=== PATIENT | female | born 2000 | race American Indian/Alaskan Native ===

== ENCOUNTER 2022-02-23 13:41 | Emergency (ER) | payer OTHER ==
[~2022-02-23] VITALS: Ht 167.6 cm; Wt 71.8 kg
--- NOTE | 2022-02-25 20:53 | EKG ---
[facility] [address] [facility] [facility] [place] [address] Signed Normal sinus rhythm Normal ECG No previous ECGs available Confirmed by Ondina Renteria MD () on 02/25/2022 8:53:03 PM Electronically Signed By: ONDINA RENTERIA MD 02/25/222052 PATIENT NAME: ABHIJEET ELI Electrocardiogram DATE OF : [birth year] PHYSICIAN: ONDINA RENTERIA MD REPORT #: [id number] REPORT IS CONFIDENTIAL AND NOT TO BE RELEASED WITHOUT AUTHORIZATION
== END 2022-02-23 17:24 | disposition home or self-care (01) ==
LOC: ED 13:41
DX: R55 Syncope and collapse (principal); S09.90XA Unspecified injury of head, initial encounter; W22.8XXA Striking against or struck by other objects, initial encounter
CPT/HCPCS: 36415; 80048; 81001; 84703; 85025; 93005; 93010; 99284-25

== ENCOUNTER 2025-03-28 22:38 | Observation (INO) | payer OTHER ==
[~2025-03-28] VITALS: Ht 167.6 cm; Wt 107.0 kg
[2025-03-28] MEDS ORDERED: IBUPROFEN200 M1 PO (22:51)
[2025-03-28] MEDS ORDERED: ASPIRIN 81 MG CHEW PO ONE (23:00)
[2025-03-28] MEDS ORDERED: LIDOCAINE & ANTACID 35 ML BTL PO ONE (23:00)
[2025-03-28] MEDS ORDERED: FAMOTIDINE 20 MG/ 2 ML VIAL IV ONE (23:00)
[2025-03-28 23:07] LABS: BASOPHILS 0.5 % (0.1-1.2); EOSINOPHILS 1.7 % (0.7-5.8); LYMPHOCYTES 8.6 % (19.3-51.7); MCH 29.0 PG (25.6-32.2); MCHC 34.1 g/dL (32.2-35.5); MCV 85.1 fL (79.4-94.8); MONOCYTES 5.5 % (4.7-12.5); NEUTROPHILS 83.4 % (34.0-71.1); RBC 4.83 M/uL (3.93-5.22)
[2025-03-28 23:24] LABS: ALT (SGPT) 16.0 U/L (14-59); AST (SGOT) 16.0 U/L (15-37); GLOMERULAR FILTRATION RATE,EST 125.0 mL/min (>60); PROTEIN, TOTAL 7.9 g/dL (6.4-8.2); UREA NITROGEN 5.0 mg/dL (7-18)
[2025-03-29] VITALS (10 sets, daily range): BP systolic 98–126; BP diastolic 53–74
[2025-03-29] MEDS ORDERED: ACETAMINOPHEN 500 MG TAB ONE (00:14)
[2025-03-29] MEDS ORDERED: ACETAMINOPHEN 500 MG TAB PO ONE (00:15)
[2025-03-29 00:40] LABS: CORONAVIRUS COVID-19 AG NEGATIVE (NEGATIVE)
[2025-03-29] MEDS ORDERED: CEFAZOLIN SODIUM 2 GM in SODIUM CHLORIDE 0.9% 100 ML IV ONE (01:00)
[2025-03-29] MEDS ORDERED: KETOROLAC TROMETHAMINE 30 MG/ML VIAL IV ONE (01:00)
[2025-03-29 01:02] LABS: BLOOD/HGB, URINE NEGATIVE (Negative); KETONE, URINE NEGATIVE (Negative); LEUK ESTERASE, URINE NEGATIVE (negative); NITRITE, URINE NEGATIVE (negative)
[2025-03-29] MEDS ORDERED: LACTATED RINGER'S 1,000 ML IV SCH ×3 (06:15→09:15)
[2025-03-29] MEDS ORDERED: KETOROLAC TROMETHAMINE 30 MG/ML VIAL IV PRN ×2 (06:30→09:15)
--- NOTE | 2025-03-29 08:50 | NUR ---
IN ROOM WITH DR BETANCOURT, PT AND FATHER. DISCUSS PLAN OF CARE. GB BOOK EDUCATION TO PT. BEREKETG WIPES TO PT FOR PRE OP.
[2025-03-29] MEDS ORDERED: FAMOTIDINE 20 MG/ 2 ML VIAL IV SCH (09:09)
[2025-03-29] MEDS ORDERED: MORPHINE SULFATE 10 MG/ML VIAL IV PRN (09:15)
[2025-03-29] MEDS ORDERED: LACTATED RINGER'S 1,000 ML IV ONE ×2 (09:15→16:30)
[2025-03-29] MEDS ORDERED: CEFAZOLIN SODIUM 2 GM in SODIUM CHLORIDE 0.9% 100 ML IV SCH (09:30)
--- NOTE | 2025-03-29 09:31 | NUR ---
WHEN PT ARRIVED ON FLOOR NURSE TOBIAS WAS IN THE OOM TO UPDATE WHITEBOARD AND OFFER ORAL CARE. FRED WHEELER BROUIGHT HER A NEW GOWN TO CHANGE INTO AND GAVE HER THE UTILITIES NEEDED FOR ORAL CARE. PT STATED NO FURHTER NEEDS, CALL LIGHT LEFT WITHIN REACH.
[2025-03-29 09:46] LABS: ALT (SGPT) 19.0 U/L (14-59); AST (SGOT) 18.0 U/L (15-37); GLOMERULAR FILTRATION RATE,EST 102.0 mL/min (>60); PROTEIN, TOTAL 7.2 g/dL (6.4-8.2); UREA NITROGEN 7.0 mg/dL (7-18)
--- NOTE | 2025-03-29 10:08 | NUR ---
PT GIVEN IV TORADOL FOR C/O HEADACHE. BLANCA RN IN TO PLACE IV US LINE - PT NEEDS BOLUS AND IV ABX CURRENT LINE IS WNL BUT SORE/SENSATIVE AND PT NEEDS BOLUS - PRE SURGERY. PREVIOIUS IV START IN ER TO LEFT ARM WAS DIFFICULT AND LG BRUISE NOTED - PT REQUESTED SOMEONE WHO WAS VERY GOOD AT IV'S FOR HER HARD START.
--- NOTE | 2025-03-29 10:22 | NUR ---
UR CLINICAL REVIEW: MCG-PER MCG REVIEW MEETS OBS FOR CHOECYSTITIS WITH NEED FOR SURGICAL INTERVENTION AND PAIN CONTROL EOCCO OBS 03/28/25 @ 2250 ORDER MATCHES REG NO AUTH REQUIRED FOR OBS VISIT PER MODA GUIDELINES DISCHARGE TO HOME IF MEETS CRITERIA 03/30/25
[2025-03-29] MEDS ORDERED: SEVOFLURANE 250 ML BTL INH ONE (10:32)
--- NOTE | 2025-03-29 10:34 | NUR ---
FRED WHEELER WALKED INTO ROOM TO TAKE PT VS SIGNS. IMPROVEMENT SPECMaxine WHEELER DOCUMENTED VS AND ASSISTED NURSE JATINDER WITH PUTTING ON LEG SLEEVES FOR THE PATIENT. PATIENT STATED NO FURTHER NEEDS, CALL LIGHT WITHIN REACH.
--- NOTE | 2025-03-29 10:39 | NUR ---
MED REC COMPLETE
--- NOTE | 2025-03-29 11:20 | EKG ---
[facility] [address] [facility] [place], [place] [address] Signed Normal sinus rhythm Cannot rule out Anterior infarct , age undetermined Abnormal ECG When compared with ECG of 23-FEB-2022 15:58, No significant change was found Confirmed by Elgin Leavitt DO ([id number]) on 03/29/2025 11:20:42 AM Electronically Signed By: ELGIN LEAVITT DO 03/29/25 1120 PATIENT NAME: ABHIJEET ELI Electrocardiogram DATE OF : [birth year] PHYSICIAN: ELGIN LEAVITT DO REPORT #: [id number] REPORT IS CONFIDENTIAL AND NOT TO BE RELEASED WITHOUT AUTHORIZATION
--- NOTE | 2025-03-29 11:52 | NUR ---
pt resting in bed reports headache improved after bolus and toradol. iv wnl x 2 sites, call light in reach.
[2025-03-29] MEDS ORDERED: SODIUM CHLORIDE 0.9% 40 ML IV ONE (13:11)
--- NOTE | 2025-03-29 14:19 | NUR ---
Spoke with Mee. Dad in room. Pt states she lives by [place] and lives with friends. She has 4 steps into her home and denies needs getting in our out of her house. She works at [employer] and drives. She does not use any DME. She plans on dc to home when medically cleared to her house. Friends/Roommates will stay with her. She saw Dr. Campbell this morning and is waiting for surgery.
--- NOTE | 2025-03-29 14:50 | NUR ---
pt to surgery with lr on strait tubing - 2 iv sites wnl, scds and in her bed. chg wipe complete. no questions family waiting in her room.
[2025-03-29] MEDS ORDERED: KETOROLAC TROMETHAMINE 30 MG/ML VIAL ONE (15:09)
[2025-03-29] MEDS ORDERED: SUGAMMADEX SODIUM 200 MG/2 ML ML ONE (15:09)
[2025-03-29] MEDS ORDERED: ROCURONIUM BROMIDE 50 MG/5 ML SYR ONE ×2 (15:09→16:29)
[2025-03-29] MEDS ORDERED: LIDOCAINE HCL 2% 5 ML SDV ONE (15:09)
[2025-03-29] MEDS ORDERED: DEXAMETHASONE SOD PHOS 4 MG/ML VIAL ONE (15:09)
[2025-03-29] MEDS ORDERED: fentaNYL citrate 100 MCG/2 ML VIAL ONE (15:11)
[2025-03-29] MEDS ORDERED: MIDAZOLAM HCL 2 MG/2 ML VIAL ONE (15:11)
[2025-03-29] MEDS ORDERED: MORPHINE SULFATE 10 MG/ML VIAL ONE (16:16)
[2025-03-29] MEDS ORDERED: SODIUM CHLORIDE 0.9% 20 ML IV ONE (16:16)
--- NOTE | 2025-03-29 17:04 | NUR ---
03/29/25 1704 Lizzie Herrera 1657: PT ARRIVES TO PACU WITH ORAL AIRWAY IN PLACE. 6L O2 VIA MASK. 4 TROCHAR SITES, SMALL AMOUTN OF SHAOWING. REPROT RECEIVED FROM GEOLOGICAL DRAFTER AND OPENSTACK DEVELOPER.
[2025-03-29] MEDS ORDERED: OXYCODONE/APAP 7.5/325 TAB PO PRN (17:15)
[2025-03-29] MEDS ORDERED: IBUPROFEN 600 MG TAB PO PRN (17:15)
[2025-03-29] MEDS ORDERED: ACETAMINOPHEN 500 MG TAB PO PRN (17:15)
--- NOTE | 2025-03-29 17:35 | NUR ---
RETURNED FROM SURGERY - LAP KIMBERLEY, 3 SCOPE SITES TO ABD WNL WITH STERI STRIPS, BEDSIDE OX 97%3 L NC. CALL LIGHT IN REACH AND FAMILY AT BEDSIDE.
--- NOTE | 2025-03-29 18:33 | NUR ---
PT WAKES AND C/O 8/10 ABB PAIN, EASILY FALLS ASLEEP AND SNORES - FAMILY AT SIDE, AND CONT. PULSE OX WITH 3L NC. 2MG IV MS GIVEN FOR PAIN. CALL LIGHT IN REACH, ABD WNL, SCDS ON.
--- NOTE | 2025-03-29 20:13 | NUR ---
1939 - up to brp, 1pa, voided, on return c/o abd pain, medicated with 2 percocet Back in bed, on room air, post op CPOX on at bedside. abd tender, not passing gas, scds in place, significant other in room.
--- NOTE | 2025-03-29 21:46 | NUR ---
Drowsy, wakens up after several loud verbal cues. On 2LNC, post op CPOX on at bedside, desatted to 88%, no resp distress, lungs clear bilat, abd tender, was medicated earlier, denies passing gas, JUSTA, tender, 2 lap sites and over umbilical area, slight dischrge at this site. SCDs in place, IV infusing RAC. goes back to sleep
--- NOTE | 2025-03-29 23:50 | NUR ---
used call light, on 2LNC, post op CPOX at bedside, up to BRP, voided, back to bed, c/o abd pain, medicated with Toradol IV, IVF infusing w/o problems. scds back on. abd ss intact, slight old drainage at umbilical area. male friend rooming in
[2025-03-30] VITALS (7 sets, daily range): BP systolic 106–131; BP diastolic 52–67
--- NOTE | 2025-03-30 02:01 | NUR ---
ON 2L NC, POST OP CPOX ON AT BEDSIDE, wnl. AWAKENS EASILY, NO S/SX DISTRESS. ABD SOFT, TENDER, VERY DISTANT JUSTA, DENIES PASSING GAS OR C/O ABD PAIN. ABD LAP SITES SS IN PLCE. SCDS IN PLACE, IVF INFUSING W/O PROBLEMS
--- NOTE | 2025-03-30 04:05 | NUR ---
RESTING, EYES CLOSED, NO S/SX DISTRESS, O2 2LNC IN PLACE, POST OP CPOX ON AT BEDSIDE, O2 NOT CHRONIC. NO C/O PAIN, IVF INFUSIGN W/O PROBLEMS. SCDS IN PLACE
--- NOTE | 2025-03-30 05:40 | NUR ---
awakens easily, medicated wtih 2 percocet c/o abd pain, on room air at this time, sats 92%m up to BRP, voided, on her menses, does own jerson and oral care. IVF infusing RA w/o problems, out for walk.
--- NOTE | 2025-03-30 07:10 | NUR ---
REPORT RECEIVED FROM LEODAN WEAVER. PATIENT RESTING IN BED WITH HER EYES CLOSED. EVEN AND UNLABORED RESPIRATIONS NOTED. WHITE BOARD UPDATED. CALL LIGHT AND PERSONAL BELONGINGS ARE WITHIN REACH. PATIENT'S FAMILY AT BEDSIDE.
--- NOTE | 2025-03-30 09:14 | NUR ---
JOE DAVIDSON PATIENT JUST WOKE UP SAID SHE DOSENT HAVE MUCH OF AN APPETITE. ASKED FOR ICE WATER
--- NOTE | 2025-03-30 09:40 | NUR ---
Spoke with Mee. Frank in room. She has mild pain and is taking Ibuprofen. She denies any needs and is resting. She is waiting to see Dr. Campbell and plans on dc today to her home.
--- NOTE | 2025-03-30 11:03 | NUR ---
HOURLY ROUNDING PATIENT APPEARS TO BE TIRED. I TURNED ON A LIGHT IN THE BATHROOM AND RAISED THE BLINDS A BIT. NO REQUEST FROM PATIENT. FILLED CUP TO ENCOURAGE WATER. CALL LIGHT PLACED WITHIN REACH
--- NOTE | 2025-03-30 11:05 | NUR ---
PATIENT RESTING IN BED WITH HER EYES CLOSED. EVEN AND UNLABORED RESPIRATIONS NOTED. CALL LIGHT AND PERSONAL BELONGINGS ARE WITHIN REACH.
[2025-03-30] MEDS ORDERED: IBUPROFEN600 MG PO (11:19)
[2025-03-30] MEDS ORDERED: ACETAMINOPHEN500 MG PO (11:20)
[2025-03-30] MEDS ORDERED: OXYCODON-ACETA1 EAC2 PO (11:20)
--- NOTE | 2025-03-31 14:52 | HP ---
[facility] [address] [place], [place] [address] Signed ADMISSION DATE: 03/28/2025 REASON FOR ADMISSION: Acute calculous cholecystitis. HISTORY OF PRESENT ILLNESS: This 24-year-old woman presented to emergency room late last night. She was evaluated by Dr. Chad Pang emergency room physician with complaints of vague abdominal pain and some question of chest pain. Her original complaints did include substernal chest pain which was intermittent for the past week. She developed abdominal pain over a week ago she tells me. She has had at least one episode of vomiting early in the evening after eating [employer] chicken McNuggets. She denies any family history of coronary disease or pulmonary embolism. A D-dimer was noted to be elevated on that basis she underwent a chest x-ray which was normal and a CT scan of the chest to rule out pulmonary embolism. There was no evidence of pulmonary embolism, but there was mild distention of the gallbladder and common bile duct. An ultrasound was performed which showed a nonmobile gallstone in the gallbladder neck with gallbladder wall thickening. The common bile duct was mildly dilated at 7.2 mm. There was no sign of intrahepatic ductal dilatation. Lab studies had shown normal liver enzymes including alkaline phosphatase of 83 and bilirubin of 0.3. White count was elevated at 12.6. She is admitted for further evaluation and care. Other issues noted include a 12-lead EKG showing sinus rhythm at 67 beats per minute. QRS axis normal. Since admission, she is feeling better, having been given medication including IV antibiotics and parenteral pain medication. Last menstrual period was March 28, 2025. She does not use alcohol or drugs. She has no prior surgical interventions. MEDICATIONS: At home include Motrin as needed. ALLERGIES: She has no known drug allergies. SOCIAL HISTORY: She is accompanied by her father; she works at [employer]. She is a movers. REVIEW OF SYSTEMS: She denies any shortness of breath or chest pain. She has had no dysphagia or dysuria. Denies any hematemesis or blood per rectum. Her pain is centered mostly in the right Electronically Signed By: FELI BETANCOURT MD 03/31/25 1452 PATIENT NAME: ABHIJEET ELI HISTORY AND PHYSICAL DATE OF : 02 REPORT #: [id number] PHYSICIAN: FELI BETANCOURT MD PCP: [facility] REPORT IS CONFIDENTIAL AND NOT TO BE RELEASED WITHOUT AUTHORIZATION [facility] [address] [place], [place] [address] Signed upper quadrant at this point. PHYSICAL EXAMINATION: GENERAL: Pleasant white woman who is reserved and withdrawn somewhat. Her father is in attendance to her. VITAL SIGNS: Show a temperature of 98.4, pulse 88, blood pressure 98/62, oxygen saturation 98% on room air. HEENT: Trachea is midline. Mucous membranes are slightly dry. CHEST: Shows normal respiratory excursion. Pulses regular. ABDOMEN: Obese, but scaphoid. There is tenderness in right upper quadrant without mass. There is no ascites. EXTREMITIES: Show no clubbing, cyanosis, or edema. LABORATORY DATA: Lab studies were as noted with white count of 12.69, hematocrit 41.1, platelets 245,000. Coag studies show a D-dimer of 0.76 (normal less than 0.50). Urinalysis was normal. Influenza screen is negative. Chem 20 shows normal electrolytes. Creatinine is 0.7. Liver enzymes are normal. Beta HCG is negative. Lipase 16. ASSESSMENT: The patient has acute calculous cholecystitis. Review of the ultrasound and various reports was undertaken. Gallbladder shows a thickened wall on my review. Layering debris or stones are noted as well. I discussed with the patient and her father the pathophysiology of biliary disease using the white board in the room. Would recommend cholecystectomy preferred by laparoscopic approach, though she may require open procedure and/or common duct exploration, though liver enzymes appear to be normal. Risk of bleeding, infection, bile duct injury, failure to cure her symptoms, need for open surgery, and need for open common duct exploration were all reviewed. She understands and wished to proceed. MD DINH Vasquez/TREL /[id number] cc: Dr. Pang Electronically Signed By: FELI BETANCOURT MD 03/31/25 1452 PATIENT NAME: ABHIJEET ELI HISTORY AND PHYSICAL DATE OF : 02 REPORT #: [id number] PHYSICIAN: FELI BETANCOURT MD PCP: [facility] REPORT IS CONFIDENTIAL AND NOT TO BE RELEASED WITHOUT AUTHORIZATION [address] [address] Signed [facility] Copies: ~ Electronically Signed By: FELI BETANCOURT MD 03/31/25 1452 PATIENT NAME: ABHIJEET ELI Maxine HISTORY AND PHYSICAL DATE OF : 02 REPORT #: [id number] PHYSICIAN: FELI BETANCOURT MD PCP: [facility] REPORT IS CONFIDENTIAL AND NOT TO BE RELEASED WITHOUT AUTHORIZATION
--- NOTE | 2025-03-31 14:52 | OR ---
[facility] [address] [place], [place] [address] Signed DATE OF OPERATION: 03/28/2025 SURGEON: Feli Betancourt MD PREOPERATIVE DIAGNOSES: 1. Acute calculous cholecystitis. 2. Obesity. POSTOPERATIVE DIAGNOSES: 1. Acute calculous cholecystitis. 2. Obesity. PROCEDURES: 1. Laparoscopic cholecystectomy with intraoperative cholangiogram. 2. Surgeon-directed fluoroscopy. ANESTHESIA: General endotracheal. Lovely Dominguez CRNA and local 10 mL of 0.25% Marcaine with epinephrine. INDICATION: This 24-year-old obese Croatian woman presented to the emergency room late last night, evaluated by Dr. Pang with vague upper abdominal and some chest pain. She underwent a CT angiogram to rule out pulmonary embolism as D-dimer was slightly elevated. Found on that study was a dilated gallbladder. Subsequently, a gallbladder ultrasound performed showing a dilated gallbladder with thickened gallbladder wall consistent with acute cholecystitis. Her white count was elevated to greater than 12,000. She was admitted for fluid resuscitation, IV antibiotics and so forth and is now ready to undergo cholecystectomy preferred by laparoscopic approach. The risk of bleeding, infection, bile duct injury, need for open procedure, failure to cure her symptoms and other unforeseen complications were all reviewed in detail. She understands and wished to proceed. FINDINGS: The gallbladder was tense and inflamed. It was decompressed with white bile noted. The gallbladder was excised. A single large stone was obstructing the infundibulum. Cholangiogram was normal. Liver showed fatty infiltration. There were no other findings of note. DESCRIPTION OF PROCEDURE: Electronically Signed By: FELI BETANCOURT MD 03/31/25 1452 PATIENT NAME: ABHIJEET ELI OPERATIVE REPORT DATE OF : 02 REPORT #: [id number] PHYSICIAN: FELI BETANCOURT MD PCP: [facility] REPORT IS CONFIDENTIAL AND NOT TO BE RELEASED WITHOUT AUTHORIZATION [facility] [address] [place], [place] [address] Signed The patient was brought to the operating room, given a general endotracheal anesthetic. Preoperative antibiotic Ancef had been given. Sequential compression device stockings were used. Heparin subcutaneously administered. The abdomen was clipped and prepared with a chlorhexidine solution and draped sterilely. An infraumbilical incision was made and using an open Joshua cannula technique, the abdomen was entered. Pneumoperitoneum was achieved to a level of 14 mmHg of carbon dioxide gas. Intra-abdominal inspection showed no sign of ascites or carcinomatosis. The gallbladder was tensed and distended and pink in color. Three additional trocars were placed in usual configuration in the subxiphoid, right midclavicular, and right anterior axillary line. The gallbladder was unable to be grasped and on that basis, it was decompressed with a needle trocar device showing essentially white bile (clear bile). The puncture site was grasped and elevated cephalad, revealing well the remaining gallbladder. There appeared to be a bulge in the lower aspect of the gallbladder consistent with a large obstructing gallstone. The infundibulum was grasped and retracted laterally and using blunt and electrocautery dissection, the triangle of Calot was dissected free. Ultimately, the cystic artery and cystic duct were well demonstrated. A clip was applied across gallbladder cystic duct junction and 2 clips across the artery both proximally and distally. Once the hepatic plate was well and the critical view of safety assured, a transverse choledochotomy was made in the cystic duct and egress of clear bile was noted. Using the Pollard type cholangiocatheter, intraoperative cholangiography was undertaken showing free flow of contrast in the biliary tree. The bile duct appeared somewhat dilated, but easy flow into the duodenum was noted. There was no sign of obstruction. 4 mg of morphine was administered intravenously to allow for retrograde filling of the proximal biliary tree and repeat cholangiogram confirmed this. The catheter was removed and the cystic duct was triply clipped and divided as was the artery. The gallbladder was then dissected free in a retrograde fashion using electrocautery. The gallbladder was placed in an endobag and extracted through the infraumbilical port site without problem, opened on the back table and found to have a single large 2 cm plus obstructing gallstone. The mucosa was attenuated and pale in appearance and no evidence of neoplasm was noted. Irrigation was undertaken in the subhepatic space. There was no sign of bleeding, bile leak, or other problem. Excess irrigation fluid was suctioned free. The trocars removed under direct visualization showing no bleeding. The infraumbilical fascial incision was reapproximated with interrupted 0 Vicryl suture. 10 mL of 0.25% Marcaine with epinephrine was injected locally. Skin was then closed with interrupted 3-0 Vicryl. Steri-Strips were applied. The patient was ultimately extubated and transferred to recovery room in good condition having suffered no complications. Sponge, needle, and instrument counts were reported as correct x3. Blood loss was less than 10 mL. Electronically Signed By: FELI BETANCOURT MD 03/31/25 1452 PATIENT NAME: ABHIJEET ELI OPERATIVE REPORT DATE OF : 02 REPORT #: [id number] PHYSICIAN: FELI BETANCOURT MD PCP: [facility] REPORT IS CONFIDENTIAL AND NOT TO BE RELEASED WITHOUT AUTHORIZATION [facility] [address] [place], [place] [address] Signed MD DINH Vasquez/JOE /[id number] cc: Dr. Chad Pang Copies: ~ Electronically Signed By: FELI BETANCOURT MD 03/31/25 1452 PATIENT NAME: ABHIJEET ELI OPERATIVE REPORT DATE OF : 02 REPORT #: [id number] PHYSICIAN: FELI BETANCOURT MD PCP: [facility] REPORT IS CONFIDENTIAL AND NOT TO BE RELEASED WITHOUT AUTHORIZATION
--- NOTE | 2025-04-05 14:01 | PATH ---
[facility] [address] [place], [place] [address] Signed SPECIMEN(S): A GALLBLADDER AND STONE SPECIMEN SOURCE: A. GALLBLADDER AND STONE CLINICAL HISTORY: Cholecystitis FINAL PATHOLOGIC DIAGNOSIS: Gallbladder and stone: - Chronic cholecystitis - Cholelithiasis - 1 benign lymph node BB MICROSCOPIC EXAMINATION: Histologic sections of all submitted blocks are examined by light microscopy. These findings, together with the gross examination, support the pathologic diagnosis. GROSS DESCRIPTION: The specimen, labeled and designated "Rony, gallbladder and stone," is received in formalin and consists of Specimen: Previously surgically opened gallbladder. Dimensions: 10.5 x 4.6 x 0.7 cm. Serosa: Russell-purple, smooth and glistening. Cystic Duct: Unobstructed, and 0.3 cm in diameter, inked blue. Calculi: A single calculus is received free-floating in the container that is yellow, firm, multifaceted and 2 cm in greatest dimension. Mucosa: Russell-brown and velvety with 6 areas of russell-white possible mucosal erosion that range from 0.2 to 0.4 cm in greatest dimension and are located near the fundus.. Wall thickness: 0.5 cm. Lymph node: 1.5 x 1.1 x 1.0 cm. Sectioning reveals a homogenous and fleshy cut surface. Additional: None. Artificial Log Machine Operator sections are submitted Cassette Summary: (A1) cystic duct margin, shaved and human resources hr representative sections of gallbladder wall to include area of possible erosion (A2) lymph node, entirely submitted PATIENT NAME: ABHIJEET ELI PATHOLOGY DATE OF : 02 REPORT #: [id number] PHYSICIAN: KATERINA JAQUEZ PCP: [facility] REPORT IS CONFIDENTIAL AND NOT TO BE RELEASED WITHOUT AUTHORIZATION [facility] [address] [place], [place] [address] Signed EO (under the direct supervision of a pathologist) The Gross Description was prepared using a voice recognition system. The report was reviewed for accuracy; however, sound-alike word errors, addition and/or deletions may occur. If there is any question about this report, please contact Client Services. ADDITIONAL NOTES: Immunohistochemical and/or in situ hybridization studies if performed in this case included appropriate positive controls that reacted as expected. This test was developed and its performance characteristics determined by [facility]. It has not been cleared or approved by the U.S. Food and Drug Administration. The FDA has determined that such clearance or approval is not necessary. This test is used for clinical purposes. It should not be regarded as investigational or for research. [facility] is certified under the Clinical Laboratory Improvement Amendments of 1988 (CLIA) as qualified to perform high complexity clinical laboratory testing. PERFORMING LABORATORY: Technical component was performed by [facility], [address] [place] [id number] (CLIA# [id number]). Professional interpretation was performed by [employer] [facility] - [address] [place] [address] (CLIA#: [id number]). Diagnostician: Tc Landin MD Pathologist Electronically Signed 04/05/2025 Copies: ~ PATIENT NAME: ABHIJEET ELI PATHOLOGY DATE OF : 02 REPORT #: [id number] PHYSICIAN: KATERINA PATHOLOGY PCP: [facility] REPORT IS CONFIDENTIAL AND NOT TO BE RELEASED WITHOUT AUTHORIZATION
== END 2025-03-30 12:22 | disposition home or self-care (01) ==
LOC: ED 22:38 → MS 22:40
PROVIDERS: Internal Medicine; ADMIT Surgery; ATTEND Surgery
PROC: 0FT44ZZ Resection of Gallbladder, Percutaneous Endoscopic Approach (ICD-10-PCS; principal; 2025-03-28)
PROC: BF12YZZ Fluoroscopy of Gallbladder using Other Contrast (ICD-10-PCS; 2025-03-28)
DX: K80.10 Calculus of gallbladder with chronic cholecystitis without obstruction (principal); E66.9 Obesity, unspecified; Z68.38 Body mass index [BMI] 38.0-38.9, adult
CPT/HCPCS: 00790; 36415; 71045; 71260; 74300; 76705; 80053; 81003; 83690; 83735; 84484; 84703; 85025; 85379; 88304; 93005; 93010; 94762; 96361; 96365; 96375; 96376; 99285-25; A9270; G0378; J0688; J1100; J1885; J2003; J2250; J2270; J2405; J2704; J3010; J3490; J7121; Q9967

== ENCOUNTER 2025-04-06 01:12 | Emergency (ER) | payer OTHER ==
[~2025-04-06] VITALS: Ht 167.6 cm; Wt 104.5 kg
[~2025-04-06 01:12] MED LIST: ACETAMINOPHEN500 MG PO; IBUPROFEN200 M1 PO; IBUPROFEN600 MG PO; OXYCODON-ACETA1 EAC2 PO
--- OUTSIDE RECORDS SUMMARY | 2025-04-06 01:19 | XMS ---
PreManage Notification: ABHIJEET ELI Security Fabric Sourcer Events No recent Security Events currently on file CRITERIA MET - [facility] - 2 Visits in 30 Days CARE PROVIDERS -, [facility] Dentist: Rail Car Painter/Sandblaster [facility] PHONE: [phone] -[place]- Dentist: Rail Car Painter/Sandblaster Current [facility] PHONE: [phone] [facility]: [facility] Current FAMILY PHONE: [phone] [place] has no Care Guidelines for this patient. E.D. VISIT COUNT (12 MO.) 2 [facility]IL[facility] TOTAL 2 NOTE: Visits indicate total known visits. ED/UCC VISIT TRACKING (12 MO.) 04/06/2025 01:13 [facility] [place] TYPE: Emergency COMPLAINT: - POST OP PROBLEM 03/28/2025 22:39 [facility] TYPE: Emergency COMPLAINT: - CHEST PAIN INPATIENT VISIT TRACKING (12 MO.) 03/28/2025 22:40 [facility] [place] TYPE: Observation COMPLAINT: - ACUTE CHOLECYSTITIS DIAGNOSES: - Body mass index [BMI] 38.0-38.9, adult - Calculus of gallbladder with acute cholecystitis without obstruction - Obesity, unspecified [email or web address]
[2025-04-06] MEDS ORDERED: CEPHALEXIN MONOHYDRATE 500 MG HOME.PACK PO ONE (02:00)
[2025-04-06] MEDS ORDERED: CEPHALEXIN500 M1 PO (02:01)
[2025-04-06 02:16] VITALS: BP 134/68
== END 2025-04-06 02:17 | disposition home or self-care (01) ==
LOC: ED 01:12
DX: Z48.815 Encounter for surgical aftercare following surgery on the digestive system (principal)
CPT/HCPCS: 87070; 87075; 87205; 99283; A9270